=== PATIENT | female | born 2000 | race African-American/Black ===

== ENCOUNTER 2024-04-25 08:04 | Emergency (ER) | payer OTHER ==
[~2024-04-25] VITALS: Ht 177.8 cm; Wt 70.0 kg
[2024-04-25 08:09] VITALS: O2SAT 100
[2024-04-25 08:11] VITALS: BP 110/74; PULSE 82; RESP 18; O2SAT 100
[2024-04-25] MEDS: ACETAMINOPHEN 325MG TABLET PO ONE (09:08)
[2024-04-25 09:09] VITALS: TEMP 98.5
[2024-04-25 09:27] LABS: BASOPHILS % 0.8 % (0.0-2.0); EOSINOPHILS % 0.6 % (0.0-5.0); HEMATOCRIT. 27.1 % (36.0-48.0); HEMOGLOBIN. 8.1 g/dL (12.0-16.0); LYMPHOCYTES % 13.9 % (20.0-50.0); MEAN CORPUSCULAR HEMOGLOBIN 20.6 pg (28.0-32.0); MEAN CORPUSCULAR VOLUME 68.7 fL (81.0-99.0); MEAN PLATELET VOLUME 8.8 fl (7.4-10.4); MONOCYTES % 6.7 % (2.0-8.0); PLATELET 268 x1000/uL (130-400); RED BLOOD CELL COUNT 3.95 mill/uL (4.2-5.4); RED CELL DISTRIBUTION WIDTH 20.1 % (11.6-14.6); WHITE BLOOD COUNT 9.1 x1000/uL (4.5-11.0)
[2024-04-25 09:36] LABS: CHLORIDE 110 mEq/L (98-107); POTASSIUM 3.5 mEq/L (3.5-5.1); SODIUM 139 mEq/L (136-145)
[2024-04-25 09:37] LABS: CARBON DIOXIDE 20 mEq/L (21-32)
[2024-04-25 09:38] LABS: CALCIUM 8.7 mg/dL (8.7-10.4)
[2024-04-25 09:42] LABS: CREATININE 0.5 mg/dL (0.6-1.0); GLUCOSE 82 mg/dL (70-105); UREA NITROGEN BLOOD 6 mg/dL (9-23)
[2024-04-25 10:03] LABS: ADD RBC MORPHOLOGY YES; DIFFERENTIAL COMMENT 1
[2024-04-25 10:15] LABS: TROPONIN I HIGH SENSITIVITY < 4 ng/L (3.0-34)
[2024-04-25] MEDS ORDERED: DIPH25TA24 MT (11:32)
[2024-04-26 00:06] LABS: ANISOCYTOSIS 1+; HYPOCHROMASIA 1+; MICROCYTOSIS 1+; PLATELET ESTIMATE NORMAL
== END 2024-04-25 12:01 | disposition home or self-care (01) ==
LOC: ER 08:04
DX: O99.513 Diseases of the respiratory system complicating pregnancy, third trimester (principal); Z3A.31 31 weeks gestation of pregnancy; B97.89 Other viral agents as the cause of diseases classified elsewhere; Z20.822 Contact with and (suspected) exposure to COVID-19
CPT/HCPCS: 80048; 85025; 84484; 87804 ×2; 36415; 71045; 99284; 87426; Z7610 ×2